=== PATIENT | female | born 1980 | race Caucasian/White ===

== ENCOUNTER 2016-12-06 17:58 | Emergency (ER) | payer OTHER ==
[~2016-12-06] VITALS: Ht 157.5 cm; Wt 106.6 kg
[~2016-12-06 17:58] MED LIST: ATENOLOL25 M1 PO; ATENOLOL25 MG PO; DICLOFENAC 50MG50 MG PO; FLEXERIL10 MG PO; LABETALOL 100M100 MG PO; LASIX40 MG PO; LISINOPRIL 10MG10 MG PO; METOLAZONE 2.52.5 MG PO; NAPROSYN 500MG500 MG PO; PRENATAL PLUS1 TA1 PO; ROBAXIN-750750 MG PO; SPIRONOLACTONE25 MG PO
--- OUTSIDE RECORDS SUMMARY | 2016-12-06 18:03 | External Medical Summary Rpt | CCD ---
Author Author , ROLA CANELA Address Unknown Phone [email or web address] Immunization Name Date Rout CVX Reac Dose Comm Prov Is Faci e tion ent ider Refu lity Give sed n Tdap 04-2 115 0.5 Hist [facility] No [facility] , 1-20 mL oric 1 1 Adso 15 al rbed Info rmat ion - Sour ce Unsp ecif ied
--- OUTSIDE RECORDS SUMMARY | 2016-12-06 18:03 | External Medical Summary Rpt | CCD ---
Author Author , ROLA CANELA Address Unknown Phone [email or web address] Care Team Providers Care Metal Spinner Name Role Phone [facility], [facility] Purpose Continuity of Care Document - 04-21-2012 through 2016 Problems Code Diagnosis DOS Provider Status 401.9 401.9 04-21-2012 [facility] 640.03 640.03 04-21-2012 [facility] ART D64.9 ANEMIA, UNSPECIFIED R60.9 EDEMA, UNSPECIFIED Allergies, Adverse Reactions, Alerts Type Allergy to substance Adverse Reaction to Substance Substance Reaction Severity NO KNOWN ALLERGIES Unknown Unknown Vital Signs 12-31-2012 15:11 Name Value Interpretat Reference Comment ion Range Body 98.2 [degF] Temperature BP 85 mm[Hg] Diastolic BP Systolic 147 mm[Hg] Heart 72 /min Rate/Pulse O2% 100 % Respiratory 18 /min Rate 12-31-2012 14:20 Name Value Interpretat Reference Comment ion Range BP 75 mm[Hg] Diastolic BP Systolic 118 mm[Hg] Heart 66 /min Rate/Pulse O2% 98 % Respiratory 18 /min Rate 04-21-2012 12:00 Name Value Interpretat Reference Comment ion Range Body 98.5 [degF] Temperature BP 72 mm[Hg] Diastolic BP Systolic 119 mm[Hg] Heart 91 /min Rate/Pulse O2% 97 % Results Labs Lab Lab Date Result Refere Interp Status Commen Order Detail nces retati t Range on B-HCG Ur Ql (12-31-2012 14:15) B-HCG NEGATIV NEG complet Ur Ql 013 E ed 14:15 Encounters Encounter Start End Date Code Location Performer Type Date Emergency LELO Mixon MD (ER) 3 14:01 3 15:38 [facility] Emergency LELO Castillo (ER) 3 11:47 3 12:03 [facility]
--- OUTSIDE RECORDS SUMMARY | 2016-12-06 18:03 | External Medical Summary Rpt | CCD ---
Author Author , ROLA CANELA Address Unknown Phone [email or web address] Care Team Providers Care Dining Services Director Name Role Phone [facility] Purpose Continuity of Care Document - 04-21-2012 through 2016 Problems Code Diagnosis DOS Provider Status 401.9 401.9 04-21-2012 [facility] 640.03 640.03 04-21-2012 [facility] ART D64.9 ANEMIA, UNSPECIFIED R60.9 EDEMA, UNSPECIFIED [...] Mixon MD (ER) 3 14:01 3 15:38 [facility] Emergency LELO Castillo (ER) 3 11:47 3 12:03 [facility]
--- OUTSIDE RECORDS SUMMARY | 2016-12-06 18:03 | External Medical Summary Rpt ---
Author Author ROLA Torres, [employer] Organization [employer] Address Unknown Phone Unavailable
--- OUTSIDE RECORDS SUMMARY | 2016-12-06 18:03 | External Medical Summary Rpt | CCD ---
Author Author [employer] Organization [employer] Address Unknown Phone Unavailable Purpose Continuity of Care Document - through 2016
--- OUTSIDE RECORDS SUMMARY | 2016-12-06 18:03 | External Medical Summary Rpt | CCD ---
Author Author , ROLA CANELA Address Unknown Phone [email or web address] Immunization Name Date Rout CVX Reac Dose Comm Prov Is Faci e tion ent ider Refu lity Give sed n Tdap 04-2 115 0.5 Hist [facility] No [facility] , 1-20 mL oric 1 1 Adso 15 al rbed Info rmat ion - Sour ce Unsp ecif ied
--- NOTE | 2016-12-06 18:11 | Urgent Treatment Center Report ---
History of Present Issue Date/Time Seen by Provider 12/06/161809 Visit Reason Pt arrived:Walked Presenting Problem:PT C/O STIFF NECK, ADVISES SHE IS UNABLE TO GET RID OF IT Location if Accident: Onset of symptoms date/time:/ or onset unknown for:MEDICAL HX UNKNOWN Have you (or family members/close friends) recently traveled outside the [place]? N If Yes, where/when: Have you had exposure to infectious disease within the past month? TB? Other? Specify: Source patient, RN notes reviewed Exam Limitations no limitations Comment Patient states that she has had a stiff neck X 3-4 days. No injury. No fever. No headache or visual disturbances. Has tried Tylenol and Motrin without relief. Used a Salon Pas patch with some relief. No vomiting. ALLERGIES Coded Allergies: codeine (Mild, 05/31/16) Home Medications Reported Medications Labetalol Hcl (Labetalol 100MG Tablet) 100 MG PO BID History Medical History General Angina: No MT: No Hypertension? Yes Hyperlipidemia? No CHF? No COPD? No Asthma? No CVA? No Seizures? No Diabetes? No GB Disease: No MRSA? No TB? No Cancer? No Immunization HX DT/Tetanus Unknown Surgical Hx Previous Surgery?Y LAPROSCOPIC INFECTION L NIPPLE Social History Smoking Hx Smoker: Never Smoker Tobacco: No Alcohol Alcohol: No Review of Systems All Other Systems Reviewed and Negative Musculoskeletal see HPI, neck pain Physical Exam Vital Signs Vital Signs Date Time Temp Pulse Resp B/P Pulse O2 O2 Flow FiO2 Ox Delivery Rate 12/06 1804 98.7 81 16 143/85 98 General Appearance normal appearance, no apparent distress Eye Exam - bilateral eye normal exam, bilateral eye PERRL, bilateral eye EOMI Ear, Nose, Throat hearing grossly normal, normal ENT inspection Neck normal inspection, non-tender, supple, full range of motion, no nuchal rigidity Respiratory Status No: respiratory distress, trachea midline, chest symmetrical. Cardiovascular normal exam, regular rate/rhythm, no peripheral edema, no gallop, no JVD, no murmur, no rub Back muscle spasm, Patient's tenderness is actually in right upper trapezius rather than her neck Extremities non-tender, normal range of motion, normal inspection, normal capillary refill Neurologic alert, normal exam, oriented x 3 Mental status normal mood/affect Medical Decision Making LABS/Meds/Orders Pt receiving controlled substance in ED? No Departure Departure Time of Disposition 1837 Disposition DC Home or Self Care(routine) Clinical Impression Primary Impression: Trapezius muscle spasm Condition STABLE Referrals Vikas WILSON,Jun (Family) Patient Instructions DI for Muscle Spasm Additional Instructions Heat, but not over Lidoderm Discharge Counseling Counseled pt/family regarding diagnosis, medications/RX, home care, follow up needs Prescriptions Current Visit Scripts Cyclobenzaprine Hcl (Flexeril) 10 MG PO TID #30 TAB Lidocaine (Lidoderm) 1 EACH TP DAILY #30 PATCH Comments RTC/ER if severe pain, headache, vomiting, visual disturbance, etc. at 1840
[2016-12-06] MEDS ORDERED: FLEXERIL10 MG PO (18:38)
[2016-12-06] MEDS ORDERED: LIDODERM1 EACH TP (18:39)
[2016-12-06 18:55] VITALS: BP 143/85
== END 2016-12-06 18:55 | disposition home or self-care (01) ==
LOC: UTC 17:58
DX: M62.838 Other muscle spasm (principal); I10 Essential (primary) hypertension; Z88.6 Allergy status to analgesic agent

== ENCOUNTER → 2017-01-04 | Outpatient (CLI) | payer OTHER ==
[~2017-01-04] MED LIST changes: +LIDODERM1 EACH TP
--- NOTE | 2017-01-04 18:01 | RADIOLOGY REPORT PS360 ---
EXAM: CERVICAL SPINE 4 OR 5 VIEWS HISTORY: Neck pain CERVICALGIA ORDERING PHYSICIAN: Pauly WHITE PATIENT AGE: 36 years COMPARISON: None FINDINGS: Normal alignment. No fracture or dislocation. No lytic or blastic change. No significant degenerative change. The disc spaces are preserved. There is slight reversal cervical lordosis which could be due to patient positioning or muscle spasm. No evidence of cervical rib. No foraminal narrowing. IMPRESSION: Slight reversal cervical lordosis otherwise negative cervical spine
== END ==
LOC: RAD 16:28
DX: M54.2 Cervicalgia (principal)